=== PATIENT | male | born 1960 | race Hispanic/Latino ===

== ENCOUNTER → 2018-04-07 | Outpatient (CLI) | payer OTHER ==
--- NOTE | 2018-04-07 14:59 | Diagnostic Imaging Report ---
TECHNIQUE: Magnetic resonance imaging of the RIGHT KNEE was performed WITHOUT injected contrast. HISTORY: Right knee pain COMPARISON: None available. FINDINGS: LIGAMENTS AND TENDONS: ACL: Intact PCL: Intact Collateral ligaments: Intact Iliotibial band: Unremarkable Popliteal tendon: Intact Extensor mechanism: Intact JOINT: Menisci: Medial: Horizontal tear posterior body and horn. Lateral: Intact without tear Articular Cartilage: Medial Compartment: Partial-thickness cartilage loss Lateral Compartment: No focal defect. Patellofemoral Compartment: Partial-thickness cartilage loss Joint Fluid: Small joint effusion. BONE: Developing subchondral insufficiency medial tibial plateau with reactive edema. No acute fracture. SOFT TISSUES: Otherwise, unremarkable. IMPRESSION: Medial meniscus horizontal tear body and posterior horn. Medial tibial plateau developing subchondral insufficiency fracture with edema. Signed by: Dr. Nathan Berger M.D. on 04/07/2018 2:56 PM
== END ==
LOC: MRI 13:37
PROVIDERS: ATTEND Family Medicine
DX: M25.561 Pain in right knee (principal)